=== PATIENT | female | born 2000 | race Caucasian/White ===

== ENCOUNTER 2022-12-05 16:40 | Emergency (ER) | payer OTHER, BC, SELFPAY ==
[2022-12-05 16:44] VITALS: BP 144/90; PULSE 98; RESP 18; TEMP 37.1; O2SAT 100; BMI 41.4
--- NOTE | 2022-12-05 16:51 | XR_ITS ---
The [address] [address] Patient Name: NATALIA HERNANDEZ MRN: [facility]:[id number] date: 2000 Sex: F Assigned Patient Location: ER Current Patient Location: ED.MAIN Accession/Order Number: [id number] Exam Date: 12/05/2022 16:59 Report Date: 12/05/2022 17:31 At the request of: ANTHONY BLANCHARD Procedure: XR tibia fibula RT 2V EXAM: XR tibia fibula RT 2V HISTORY: work injury 10 days ago. Now with pain. COMPARISON: None. TECHNIQUE: AP and lateral views of the right tibia and fibula were obtained. FINDINGS: There is no evidence of an acute fracture or dislocation. No focal osseous abnormality is identified. The joint spaces at the knee and ankle appear intact. No abnormal soft tissue calcification is identified. XR/XR tibia fibula RT 2V IMPRESSION: No apparent acute fracture or dislocation. The joint spaces are intact. Electronically authenticated by: ALDO BAUER Date: 12/05/2022 17:31
--- NOTE | 2022-12-05 16:51 | XR_ITS ---
The [address] [address] Patient Name: NATALIA HERNANDEZ MRN: [facility]:[id number] date: 2000 Sex: F Assigned Patient Location: ED.MAIN Current Patient Location: ER Accession/Order Number: [id number] Exam Date: 12/05/2022 16:59 Report Date: 12/05/2022 17:33 At the request of: ANTHONY BLANCHARD Procedure: XR ankle RT min 3V EXAM: XR ankle RT min 3V HISTORY: work injury 10 days ago. COMPARISON: None. TECHNIQUE: 3 views of the right ankle were obtained. FINDINGS: There is no evidence of an acute fracture or dislocation. The mortise is intact. No osteochondral injury is identified. A tiny calcification is seen along the lateral aspect of the talus in one view, which appears chronic in nature. The subtalar joints are intact. A small osteophyte arises from the insertion site of the Achilles tendon. Mild soft tissue swelling is seen diffusely about the ankle and proximal foot. XR/XR ankle RT min 3V IMPRESSION: No acute fracture or dislocation. The joint spaces are intact and no osteochondral injury is identified this time. Mild diffuse soft tissue swelling about the ankle is noted. Electronically authenticated by: ALDO BAUER Date: 12/05/2022 17:33
--- NOTE | 2022-12-05 16:52 | ED.LOWEXI1 ---
HPI - Extremity Injury (Lower) General Chief Complaint: Extremity Injury, Lower Time Seen by Provider: 12/05/22 16:47 Mode of arrival: ambulance History of Present Illness HPI Narrative: patient is a 22-year-old female who presents to the emergency department for the evaluation of her right ankle injury that occurred at work ten days ago. Patient reports metal dumpster went over her right ankle. She reports pain over the right lateral malleolus, she is able to ambulate. She reports pain is radiating up the lower leg to the knee. She is not concerned for . She had no other associated injuries. No medications taken prior to arrival. Related Data Home Medications Medication Instructions Recorded Confirmed No Known Home Medications 12/05/22 12/05/22 Previous Rx's Medication Instructions Recorded ketorolac 10 mg tablet 10 mg PO TID PRN pain #10 tabs 12/05/22 Allergies Allergy/AdvReac Type Severity Reaction Status Date / Time Sulfa (Sulfonamide AdvReac Intermediate Verified 12/05/22 16:44 Antibiotics) stratera AdvReac Intermediate Uncoded 12/05/22 16:44 Review of Systems ROS Constitutional Denies: fever or chills Ears, nose, mouth, and throat Denies: throat pain Cardiovascular Denies: chest pain Respiratory Denies: shortness of breath or cough Gastrointestinal Denies: nausea or vomiting Genitourinary Denies: painful urination Musculoskeletal Reports: extremity pain and joint pain; Denies: back pain or neck pain Integumentary/Breast Denies: rash Neurological Denies: headache PFSH PFSH Social History Smoking status: Current every day smoker Exam Narrative Exam Narrative: Gen.: Awake, alert, in no distress Head: Normocephalic, atraumatic ENT: Moist mucous membranes Respiratory: No respiratory distress Extremities: tenderness and minimal edema noted over the right lateral malleolus, healing ecchymosis noted. No bony point tenderness or obvious deformity. No tenderness of the 5th metatarsal. No bony tenderness of the right knee or anterior tibia. 2+ right DP pulse. Patient can flex and extend the toes of the right foot. Psych: Normal mood and affect Neuro: No focal neuro deficit Skin: Warm, dry, intact Constitutional Vital Signs, click to edit/add: Last Vital Signs Temp 98.7 F 12/05/22 16:44 Pulse 98 H 12/05/22 16:44 Resp 18 12/05/22 16:44 BP 144/90 H 12/05/22 16:44 Pulse Ox 100 12/05/22 16:44 O2 Del Method Room Air 12/05/22 16:44 Course Vital Signs Vital signs: Vital Signs Temperature 98.7 F 12/05/22 16:44 Pulse Rate 98 H 12/05/22 16:44 Respiratory Rate 18 12/05/22 16:44 Blood Pressure 144/90 H 12/05/22 16:44 Pulse Oximetry 100 12/05/22 16:44 Oxygen Delivery Method Room Air 12/05/22 16:44 Temperature 98.7 F 12/05/22 16:44 Pulse Rate 98 H 12/05/22 16:44 Respiratory Rate 18 12/05/22 16:44 Blood Pressure 144/90 H 12/05/22 16:44 Pulse Oximetry 100 12/05/22 16:44 Oxygen Delivery Method Room Air 12/05/22 16:44 MDM - Extremity Injury (Lower) MDM Narrative Medical decision making narrative: x-rays are unremarkable the right ankle and tibia-fibula. Patient placed in an [place] wrap and given instructions for a cool sprain. Follow-up occupational health. Rest, ice, elevate. NSAIDs given for home. Return to the Emergency Room if symptoms change or worsen. Patient is neurovascularly intact pre-and post hardware application. Medical Records Attestation: I reviewed the patient's medical records. Imaging Data XR ankle: Attestation: I have reviewed the pertinent imaging results. Radiologist's impression: Procedure: XR ankle RT min 3V EXAM: XR ankle RT min 3V HISTORY: work injury 10 days ago. COMPARISON: None. TECHNIQUE: 3 views of the right ankle were obtained. FINDINGS: There is no evidence of an acute fracture or dislocation. The mortise is intact. No osteochondral injury is identified. A tiny calcification is seen along the lateral aspect of the talus in one view, which appears chronic in nature. The subtalar joints are intact. A small osteophyte arises from the insertion site of the Achilles tendon. Mild soft tissue swelling is seen diffusely about the ankle and proximal foot. IMPRESSION: No acute fracture or dislocation. The joint spaces are intact and no osteochondral injury is identified this time. Mild diffuse soft tissue swelling about the ankle is noted. Electronically authenticated by: ALDO BAUER Date: 12/05/2022 17:33 XR tibfib: Attestation: I have reviewed the pertinent imaging results. Radiologist's impression: Procedure: XR tibia fibula RT 2V EXAM: XR tibia fibula RT 2V HISTORY: work injury 10 days ago. Now with pain. COMPARISON: None. TECHNIQUE: AP and lateral views of the right tibia and fibula were obtained. FINDINGS: There is no evidence of an acute fracture or dislocation. No focal osseous abnormality is identified. The joint spaces at the knee and ankle appear intact. No abnormal soft tissue calcification is identified. IMPRESSION: No apparent acute fracture or dislocation. The joint spaces are intact. Electronically authenticated by: ALDO BAUER Date: 12/05/2022 17:31 Discharge Plan Discharge Chief Complaint: Extremity Injury, Lower Clinical Impression: Ankle sprain and strain Patient Disposition: Home, Self-Care Time of Disposition Decision: 17:38 Condition: Good Prescriptions / Home Meds: New ketorolac 10 mg tablet 10 mg PO TID PRN (Reason: pain) Qty: 10 0RF No Action No Known Home Medications Instructions: Ankle Sprain (ED) Additional Instructions: Follow up occupational health in 3-5 days Stand Alone Forms: Portal Instructions Referrals: Physician,Non-Staff, MD [Primary Care Provider] - 1 week
== END 2022-12-05 17:50 | disposition home or self-care (01) ==
PROVIDERS: Emergency Provider Emergency Medicine Emergency Medical Services
DX: S93.401A Sprain of unspecified ligament of right ankle, initial encounter (principal); S96.911A Strain of unspecified muscle and tendon at ankle and foot level, right foot, initial encounter; W20.8XXA Other cause of strike by thrown, projected or falling object, initial encounter
CPT/HCPCS: 73590; 73610; 99283